=== PATIENT | male | born 1975 | race Two or more races ===

== ENCOUNTER 2019-04-01 22:31 | Emergency (ER) | payer SELFPAY ==
[~2019-04-01] VITALS: Ht 172.7 cm; Wt 59.0 kg
[2019-04-01 23:37] LABS: BASOPHILS % 0.4 % (0.0-2.0); EOSINOPHILS % 0.5 % (0.0-5.0); HEMATOCRIT. 43.6 % (42.0-52.0); HEMOGLOBIN. 14.8 g/dL (14.0-18.0); MEAN CORPUSCULAR HEMOGLOBIN 31.1 pg (28.0-32.0); MEAN CORPUSCULAR VOLUME 91.5 fL (80.0-94.0); MEAN PLATELET VOLUME 7.9 fl (7.4-10.4); MONOCYTES % 4.8 % (2.0-8.0); NEUTROPHILS % 72.3 % (40.0-76.0); PLATELET 255 x1000/uL (130-400); RED BLOOD CELL COUNT 4.77 mill/uL (4.7-6.1); RED CELL DISTRIBUTION WIDTH 12.9 % (11.6-14.6)
[2019-04-01 23:45] LABS: PROTHROMBIN TIME 9.9 sec (9.6-11.0)
[2019-04-02 00:38] LABS: CHLORIDE 105 mEq/L (98-107)
[2019-04-02 00:43] LABS: ETHANOL BLOOD 241 mg/dL
[2019-04-02 02:19] LABS: *BARBITURATES SCREEN URINE NEGATIVE (NEGATIVE)
[2019-04-02 02:20] LABS: *AMPHETAMINES SCREEN URINE NEGATIVE (NEGATIVE); *BENZODIAZEPINES SCREEN URINE NEGATIVE (NEGATIVE); *COCAINE SCREEN URINE NEGATIVE (NEGATIVE); METHADONE URINE SCREEN NEGATIVE (NEGATIVE); OPIATES URINE SCREEN NEGATIVE (NEGATIVE); PHENCYCLIDINE URINE SCREEN NEGATIVE (NEGATIVE)
[2019-04-02 02:21] LABS: CANNABINOID URINE SCREEN NEGATIVE (NEGATIVE)
[2019-04-02] MEDS ORDERED: ONDANSETRON HCL 4MG/2ML INJ IV ONE (03:45)
[2019-04-02] MEDS ORDERED: MORPHINE SULFATE 4 MG/ML CPJ (NOT FOR IM USE) IV ONE (03:45)
[2019-04-02 05:45] VITALS: BP 125/68
== END 2019-04-02 06:36 | disposition home or self-care (01) ==
LOC: ER 22:31
DX: S82.891A Other fracture of right lower leg, initial encounter for closed fracture (principal); Y08.89XA Assault by other specified means, initial encounter; Y93.89 Activity, other specified; Y92.89 Other specified places as the place of occurrence of the external cause; Y99.8 Other external cause status
CPT/HCPCS: 29515; 36415; 70450; 72125; 73610; 80053; 80305; 80320; 85025; 85610; 96374; 96375; 99284; J2270; J2405; G0480